=== PATIENT | female | born 1975 | race Two or more races ===

== ENCOUNTER 2019-02-25 01:23 | Emergency (ER) | payer OTHER ==
[~2019-02-25] VITALS: Ht 165.1 cm; Wt 108.9 kg
[2019-02-25] MEDS ORDERED: KETO10TA2 PO (04:16)
== END 2019-02-25 04:56 | disposition home or self-care (01) ==
LOC: ER 01:23
DX: S00.83XA Contusion of other part of head, initial encounter (principal); X58.XXXA Exposure to other specified factors, initial encounter; Y93.89 Activity, other specified; Y92.89 Other specified places as the place of occurrence of the external cause; Y99.8 Other external cause status

== ENCOUNTER 2021-04-24 09:14 | Outpatient (CLI) | payer OTHER ==
[~2021-04-24 09:14] MED LIST: KETO10TA2 PO
== END 2021-04-24 09:17 | disposition home or self-care (01) ==
LOC: SONOGRAMA 09:14
PROVIDERS: ATTEND Pathology Anatomic Pathology & Clinical Pathology
DX: E04.2 Nontoxic multinodular goiter (principal)

== ENCOUNTER 2021-05-15 11:37 | Outpatient (CLI) | payer OTHER | END 2021-05-15 11:39 | disposition home or self-care (01) | LOC: SONOGRAMA 11:37 | PROVIDERS: ATTEND Pathology Anatomic Pathology & Clinical Pathology | DX: E04.2 Nontoxic multinodular goiter (principal) ==